=== PATIENT | female | born 1965 | race Caucasian/White ===

== ENCOUNTER 2020-06-18 12:54 | Emergency (ER) | payer OTHER, SELFPAY ==
--- NOTE | ~2020-06-18 | XR_ITS ---
XR knee RT 3V DATE: 06/18/2020 13:27 INDICATION: Right knee pain following fall TECHNIQUE: 3 views COMPARISON: None FINDINGS: Moderate suprapatellar knee joint effusion. There is tricompartment osteoarthritis, most pronounced at the medial compartment. There is mild late ral tibial subluxation. No fracture or dislocation, periosteal reaction or bone destruction is detected. IMPRESSION: Tricompartment osteoarthritis Knee joint effusion Reviewed, dictated and finalized at location B. 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
[2020-06-18 13:00] VITALS: BP 170/77; PULSE 88; RESP 16; TEMP 36.6; O2SAT 96
--- NOTE | 2020-06-18 14:31 | ED.GENADULT ---
HPI - General Adult General Chief complaint: Extremity Injury, Lower Stated complaint: Right knee injury Time Seen by Provider: 06/18/20 12:59 Source: patient Mode of arrival: ambulatory Limitations: no limitations History of Present Illness HPI narrative: Patient is a 54-year-old female who presents to emergency department for evaluation of right knee pain that occurred from a ground-level fall yesterday patient tripped fell injuring the knee since had a pain of the knee tried an Eliecer wrap with limited weightbearing patient presents for private vehicle in no distress denies other injuries or complaints Related Data Home Medications Medication Instructions Recorded Confirmed albuterol sulfate INHALATION 06/18/20 06/18/20 atorvastatin 06/18/20 beclomethasone dipropionate [Qvar INHALATION 06/18/20 RediHaler] calcium carbonate-vitamin D3 tablet PO 06/18/20 metformin mg 06/18/20 Allergies Allergy/AdvReac Type Severity Reaction Status Date / Time No Known Allergies Allergy Verified 06/18/20 13:18 Review of Systems Review of Systems: All systems reviewed & are unremarkable except as noted in HPI and below PMFSH Past Medical History Medical History (Updated 06/18/20 @ 14:34 by Tu Velasquez PA-C) Arthritis Obesity Social History Social History (Updated 06/18/20 @ 14:33 by Tu Velasquez PA-C) Smoking status: Current every day smoker Exam Narrative: Exam Narrative: GENERAL: Well-appearing, well-nourished, and in no acute distress. HEAD: Normocephalic, atraumatic. EYES: PERRLA and EOMI. ENT: Nares clear, no rhinorrhea or epistaxis. Mucous membranes moist. EXTREMITIES: Normal range of motion. No edema. Tenderness of the anterior right knee no deformities noted SKIN: Warm, dry, no rash. NEURO: No focal deficits. Alert and oriented x3. Neurovascularly intact PSYCH: Normal mood and affect. Course Course Emergency Course: Patient in the room no distress aware of case findings will follow with specialist Vital Signs Vital signs: Vital Signs Temperature 97.9 F 06/18/20 13:00 Pulse Rate 88 06/18/20 13:00 Respiratory Rate 16 06/18/20 13:00 Blood Pressure 170/77 H 06/18/20 13:00 Pulse Oximetry 96 06/18/20 13:00 Temperature 97.9 F 06/18/20 13:00 Pulse Rate 88 06/18/20 13:00 Respiratory Rate 16 06/18/20 13:00 Blood Pressure 170/77 H 06/18/20 13:00 Pulse Oximetry 96 06/18/20 13:00 Medical Decision Making MDM Narrative Medical decision making narrative: Patients injury or pain is consistent with musculoskeletal etiology. No signs of neurological or vascular compromise on exam. Compartments and tisues are soft without signs of compartment syndrome. Pain is felt appropriate for further evaluation on an outpatient basis. Vital Signs Vital Signs: Vital Signs Temperature 97.9 F 06/18/20 13:00 Pulse Rate 88 06/18/20 13:00 Respiratory Rate 16 06/18/20 13:00 Blood Pressure 170/77 H 06/18/20 13:00 Pulse Oximetry 96 06/18/20 13:00 Temperature 97.9 F 06/18/20 13:00 Pulse Rate 88 06/18/20 13:00 Respiratory Rate 16 06/18/20 13:00 Blood Pressure 170/77 H 06/18/20 13:00 Pulse Oximetry 96 06/18/20 13:00 Imaging Data Radiologist's impression: ITS Impressions Knee X-Ray 06/18/20 13:29 IMPRESSION: Tricompartment osteoarthritis Knee joint effusion Discharge Plan Discharge Clinical Impression: Acute pain of right knee Patient Disposition: Home, Self-Care Condition: Stable Instructions: Antibiotic Form, Arthralgia (ED) Additional Instructions: Wear Eliecer wrap with limited weight on the affected leg until able to bear weight without pain. Ice and elevate extremity. Pain medication as needed and directed. Follow up with your doctor for further care in the next 7 days. Prescriptions: New acetaminophen [Tylenol Arthritis Pain] 650 mg tablet extended release 650 mg PO Q8H PRN (Reason: pain) Qt
== END 2020-06-18 14:56 | disposition home or self-care (01) ==
PROVIDERS: Emergency Provider Emergency Medicine; PCP Internal Medicine
DX: M25.561 Pain in right knee (principal); F17.200 Nicotine dependence, unspecified, uncomplicated; M19.90 Unspecified osteoarthritis, unspecified site; E66.9 Obesity, unspecified; Z68.37 Body mass index [BMI] 37.0-37.9, adult
CPT/HCPCS: 73562; 99283

== ENCOUNTER 2023-11-03 15:34 | Outpatient (CLI) | payer OTHER, SELFPAY ==
--- NOTE | ~2023-11-03 | MR_ITS ---
EXAMINATION: MR shoulder RT wo con DATE: 11/03/2023 16:32 INDICATION: Right shoulder pain. Rupture of rotator cuff of right shoulder. TECHNIQUE: Magnetic resonance imaging (MRI) of the right shoulder was performed without intravenous c ontrast. Sequences included axial PD-weighted FS FSE, coronal oblique PD-weighted FS FSE and T2-weigh abel FS FSE, and sagittal oblique T2-weighted FS FSE and T1-weighted FSE. COMPARISON: None. FINDINGS: Coracoacromial arch: The acromion undersurface is flat in morphology (type I). There is severe acromioclavicular joint ost eoarthritis including inferiorly directed osteophytes. There is mild subacromial/subdeltoid bursitis. Rotator cuff: There is mild supraspinatus and infraspinatus tendinopathy. Teres minor tendon is normal. Subscapular is tendon is normal. There is no asymmetric fatty atrophy of the rotator cuff muscle bellies. Biceps tendon and glenoid labrum: Biceps tendon is in bicipital groove. Intra-articular biceps tendon is normal. There is maceration of the glenoid labrum. Fluid: There is no glenohumeral joint effusion. Bones/cartilage: There is extensive full-thickness cartilage loss of glenoid and humeral head with cortical remodeling and large osteophytes. IMPRESSION: 1. Advanced glenohumeral joint osteoarthritis. 2. Severe acromioclavicular joint osteoarthritis. 3. Mild subacromial/subdeltoid bursitis. 4. Mild rotator cuff tendinopathy. No tear. Reviewed, dictated and finalized at location A.
== END 2023-11-03 15:35 | disposition home or self-care (01) ==
PROVIDERS: PCP Emergency Medicine; Visit Provider Emergency Medicine
DX: M19.011 Primary osteoarthritis, right shoulder (principal); M75.51 Bursitis of right shoulder; M75.31 Calcific tendinitis of right shoulder
CPT/HCPCS: 73221